=== PATIENT | male | born 1955 | race Two or more races ===

== ENCOUNTER 2023-04-02 18:57 | Emergency (ER) | payer MEDICAID ==
[~2023-04-02] VITALS: Ht 167.6 cm; Wt 81.8 kg
[2023-04-02 19:15] VITALS: BP 156/94; PULSE 73; RESP 18; O2SAT 97
[2023-04-02 20:02] LABS: Urine Bacteria NONE SEEN /hpf (None Seen); Urine Blood 3+ /uL (Negative); Urine Clarity HAZY (Clear); Urine Color Red (Yellow); Urine Protein, UAD 2+ (Negative); Urine Specific Gravity 1.012 (1.001-1.035); Urine Urobilinogen Normal (Negative); Urine WBC 37 /hpf (0 - 3); Urine pH 6.5 (5.0-8.0)
== END 2023-04-02 19:48 | disposition left against medical advice (07) ==
LOC: ER 18:57
DX: R31.9 Hematuria, unspecified (principal); Z53.21 Procedure and treatment not carried out due to patient leaving prior to being seen by health care provider
CPT/HCPCS: 81001